=== PATIENT | female | born 1940 | race Caucasian/White ===

== ENCOUNTER → 2017-04-21 | Outpatient (CLI) | payer OTHER, MEDICARE ==
--- NOTE | 2017-04-21 15:23 | DIAGNOSTIC IMAGING REPORT ---
RIGHT HAND 3 VIEWS CLINICAL HISTORY: Right hand pain. FINDINGS: 3 views of the right hand are obtained. No prior studies are available for comparison at the time of dictation. The Skeletal structures are osteopenic. No fracture is seen. There is degenerative narrowing at the radiocarpal articulation and chondrocalcinosis of the triangular fibrocartilage. Mild osteoarthritic change is present the first carpometacarpal and metacarpophalangeal joints. There is after arthritic change involving the interphalangeal joints, distal greater than proximal. 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 Mild soft tissue swelling is seen in the fingers. IMPRESSION: 1. No acute bony abnormality is seen in the right hand. 2. Osteopenia and arthritic change as detailed above. Electronically signed by: Jairo Lozano M.D. 04/21/2017 3:21 PM Dictated Date/Time: 04/21/2017 3:20 PM
== END | disposition home or self-care (01) ==
LOC: C.RDSM 15:00
PROVIDERS: ATTEND Physician Assistant
DX: M79.641 Pain in right hand (principal); M85.841 Other specified disorders of bone density and structure, right hand

== ENCOUNTER → 2017-05-18 | Outpatient (CLI) | payer OTHER, MEDICARE | END | disposition home or self-care (01) | LOC: C.RDSM 13:21 | PROVIDERS: ATTEND Physical Medicine & Rehabilitation Sports Medicine | DX: M25.532 Pain in left wrist (principal) ==

== ENCOUNTER → 2018-02-03 | Day surgery (SDC) | payer OTHER, MEDICARE ==
[2018-01-20 11:48] VITALS: Ht 154.9 cm; Wt 54.5 kg
[~2018-02-03] VITALS: Ht 154.9 cm; Wt 54.5 kg
[~2018-02-03] MED LIST: ATROPINE SULFATE 0.1 MG/ML 5ML SYR IV PRN; BUPIVACAINE 0.5 % 5 MG/1 ML MPF 30ML VIAL ONE; CEFAZOLIN 1000MG IV PUSH 7.5 ML IV SCH; EpHEDrine SULFATE INJ 50 MG/ML AMP IV PRN; FENTANYL CITRATE INJ 50 MCG/1 ML 2 ML VIAL ONE; HYDR-5688 PO; HYDROCODONE/ACETAMIN 5/325MG TAB PO PRN; LACTATED RINGER'S 1000ML 1,000 ML IV SCH; LIDOCAINE HCL 2% 2 ML VIAL (20MG/ML) ONE; LIDOCAINE/EPINEPHRINE 1% 20 ML VIAL ONE; MIDAZOLAM HCL 1 MG/ML 2ML VIAL ONE; ONDANSETRON INJ 2 MG/ML 2 ML VIAL IV PRN; ONDANSETRON INJ 2 MG/ML 2 ML VIAL ONE; PRLSR20 PO; PROPOFOL IV EMULSION 10 MG/ML 20 ML VIAL ONE; SODIUM CHLORIDE 0.9% 1000ML 1,000 ML IV SCH; SPIR50TA2 PO; THEO300T14 PO; TRAZ100T29 PO; ZAFI1TAB10 PO
--- NOTE | 2018-02-03 06:47 | History & Physical Bridge Note ---
H&P Re-Evaluation Bridge Note: I have examined the patient, reviewed the History & Physical and in the interval since the performance of the History & Physical I have noted the following changes of clinical significance: No changes noted
--- NOTE | 2018-02-03 08:02 | [facility] Post Operative Brief Note ---
Immediate Operative Summary Operative Date February 03, 2018. Pre-Operative Diagnosis Right middle finger trigger digit Left Carpal Tunnel Syndrome Post-Operative Diagnosis same as preop Procedure(s) Performed Left Carpal Tunnel Release, Right Middle Trigger Finger Release Surgeon Dr. Graham Nursing Technician Surgeon(s) Kitty Ignacio Estimated Blood Loss 5 Findings Consistent with Post-Op Diagnosis Specimens A: Etienne Fibroma, right hand Drains None Anesthesia Type MAC Complication(s) none Disposition Accompanied Pt To Recover: no Disposition: Recovery Room / PACU
[2018-02-03 08:13] VITALS: TEMP 36.8; O2SAT 95
--- NOTE | 2018-02-03 08:21 | [facility] Operative Report ---
Operative Report Operative Date February 03, 2018. Pre-Operative Diagnosis Right middle finger trigger digit Left Carpal Tunnel Syndrome Post-Operative Diagnosis same as preop Procedure(s) Performed Left Carpal Tunnel Release, Right Middle Trigger Finger Release Surgeon Dr. Graham Tarp Repairer Surgeon(s) Kitty Ignacio Estimated Blood Loss 5 Findings Thickening of A1 milad right middle finger without triggering. Thickened palmar fascia with nodularity right middle finger. Specimens A: Etienne Fibroma, right hand Anesthesia Local with IV sedation Complication(s) None Disposition Recovery Room / PACU Indications Patient's 77-year-old female with symptomatic right hand long finger trigger digit. Immediately adjacent to this is a pulmonary nodule likely a fibroma with some prominence of the longitudinal palmar fascia. She also has severe left carpal tunnel syndrome. These are refractory to nonsurgical methods of management. Description of Procedure Informed consent was obtained. The patient was identified as Cassidy Gavin. The patient identified the operative site as the left hand carpal tunnel and the right long finger which I marked with my initials. A preoperative surgical timeout was performed. A preop dose of IV antibiotics was given. The patient was positioned supine on the hospital stretcher with the left arm suspended on a hand table. A tourniquet was applied to the arm. The limb was prepped and draped in the usual sterile fashion. The examination under anesthesia was unremarkable. DVT prophylaxis was not indicated. The limb was exsanguinated with the Esmarch and the tourniquet was inflated to 225 mmHg. A midline longitudinal incision was made beginning at Tomas's cardinal line. The incision stopped just short of the distal transverse wrist crease and was later extended 1 cm obliquely to the wrist crease. Blunt dissection was performed down through the subcutaneous tissues and through the superficial palmar fascia. The transverse carpal ligament was identified and divided in line with the incision up into distal forearm fascia under direct visualization. A wide decompression was obtained. The contents of the carpal canal tendons median nerve and tenosynovium appeared to be normal. The wound was copiously irrigated with sterile saline and then closed with 4-0 nylon horizontal mattress stitches. A soft sterile dressing was applied. There appeared to be 2 layers of the transverse carpal ligament distally or some thickened palmar fascia. This was carefully dissected through and then deeper to this was the transverse carpal ligament. Prior to that the superficial palmar fascia had been divided.The tourniquet was let down after 15 of inflation. Both upper extremities have been prepped and draped at the same time. The right hand was worked on first. Thickening of the A1 milad was noted and just proximal superficial to that a 1 cm palmar nodule with some thickened longitudinal palmar fascia extending proximal to it. A zigzag incision was made. Prior to the start of the procedure both hands were injected with 1% lidocaine with epinephrine and 0.5% Marcaine for local block. IV sedation was given. Blunt dissection was performed in the midline on the right hand long finger. Care was taken to identify protect and preserve the neurovascular bundles which were at this level immediately adjacent to the flexor tendon and immediately below the patient's thin skin. Some Zulay synovitis was noted proximally and this was resected along with a portion of the palmar nodule which had he adhered down to the flexor tendon sheath. The longitudinal portion was also resected and released. I carefully dissected a portion of the nodule off of the skin preserving the dermis. The thickened A1 milad was identified and fully divided there was nodularity of the tendon but no triggering present before or after. The wound was copiously irrigated with sterile saline and closed with 4-0 nylon. A soft sterile dressing was applied and the tourniquet was let down after approximately 15 minutes of inflation. The patient was awakened from anesthesia without difficulty and taken to the recovery room in stable condition. There were no specimens or complications. Counts were correct at the end of the case. Blood loss was minimal. At the conclusion of the operation spoke to the patient's family and informed them of my findings. Detailed postoperative instructions were given. The patient will be rehabilitated according to the carpal tunnel and trigger digit protocol. I attest to the content of the Intraoperative Record and any orders documented therein. Any exceptions are noted below.
--- NOTE | 2018-02-03 08:27 | Discharge Instructions-SurgCtr ---
Discharge Instructions Date of Service February 03, 2018. Visit Reason for Visit: Left Carpal Tunnel Syndrome, Right Middle Trigger Discharge Discharge Diagnosis / Problem: Left carpal tunnel syndrome, right middle trigger digit Discharge Goals Goal(s): Decrease discomfort, Improve function, Increase independence Activity Recommendations Activity Limitations: per Instructions/Follow-up section Anesthesia . Post Anesthesia Instructions: If you have had General Anesthesia or IV Sedation: * Do not drive today. * Resume driving when surgeon permits. * Do not make important decisions or sign legal documents today. * Call surgeon for: 1. Temperature elevations greater than 101 degrees F. 2. Uncontrollable pain. 3. Excessive bleeding. 4. Persistent nausea and vomiting. 5. Medication intolerance (nausea, vomiting or rash). * For nausea and vomiting use only clear liquids such as: tea, soda, bouillon until nausea subsides, then gradually increase diet as tolerated. * If you have any concerns or questions, call your surgeon's office. If physician is unavailable and it is an emergency, call 911 or go to the nearest emergency room. . Instructions / Follow-Up Instructions / Follow-Up The following are instructions to follow after minor hand surgery. ACTIVITY RECOMMENDATIONS: * Minimize activity until your first visit after surgery. * No excessive walking, jogging, sports or laboring. * Return to activity is individualized. Most patients are able to return to everyday activities within 2 weeks. * Return to sports or intensive labor usually occurs at 1-2 months. * DRIVING: Driving may be resumed when you feel you have adequate pain control and use of the hand. * BATHING: You may shower or sponge-bathe immediately after surgery. The dressing will need to be covered with a plastic bag or plastic wrap until the dressing is changed on the fourth or fifth day after surgery. Once the dressing has been changed on the fourth or fifth day after surgery, you may shower and get the incision wet. * Wash with regular soap and water. * Do not bathe (submerge the incision), soak, swim or use a hot tub until the incision is completely healed over with normal skin and the doctor has given the OK to proceed. * There is no need to apply any ointments, powders or salves to your incision. * Do not apply alcohol or hydrogen peroxide directly to the incision. Diluted peroxide (50:50 mixture with sterile saline) may be used to clean dried blood from around the incision area. WORK/SCHOOL: * You may return to sedentary work or school when you are feeling comfortable. This is usually 3-7 days after surgery. * Expect increased discomfort with increased activity. Continue to elevate and ice the hand as much as possible. DIET: * Resume previous diet. MEDICATIONS: * You will have a prescription for pain medication and an anti-inflammatory medication after surgery. Use the pain pills for severe pain and the anti-inflammatory for less severe pain. * Once the pain pills have run out, try to use the anti-inflammatory. If this is not effective then contact the office for assistance. * The pain medication may cause nausea, constipation and sleepiness. You should see how they affect you before driving or similar activity. * The anti-inflammatory may cause stomach upset and bleeding. If this occurs, let your doctor know immediately . * Some patients may need blood clot prevention. This can be done with either a pill or a simple shot. Your doctor will advise you on when to begin these medications and how to take them. * Do not take aspirin or other anti-inflammatory products (i.e. Advil or Aleve ) if taking blood thinner medication. * Take a stool softener like Colace or a stimulant like Senokot to prevent constipation. SPECIAL CARE INSTRUCTIONS: ICE: * Do not apply ice directly to the skin. * Use a thin dressing or stockinet between the skin and ice bag. The dressing in place after surgery will suffice. * Apply ice for 20-30 minutes and repeat every 2-4 hours. This is especially important for the first 3-7 days after surgery. * Once the pain improves, use ice as needed. ELEVATION: * Keep your hand elevated at or above the level of your heart as much as possible. * Expect some increased discomfort and swelling if you allow your hand to hang down for any length of time. DRESSING: * Your dressing will be changed 4-5 days after surgery by the physical therapist or physician's client services assistant. Leave your dressing intact until this time. * You may then change your dressing daily with clean dry gauze or Band-aids and a soft wrap or stockinet. * Always wash your hands prior to touching the incision area. * Once the stitches are removed, you may leave the wound open to air or cover with a thin bandage. * There is no need to apply any ointments, powders or salves to your incision. * Expect some bloody drainage for the first few days after surgery. * Leave the tape strips in place (if present) for 5-7 days. * The initial dressing after surgery may become soaked with blood or fluid which is normal. You may reinforce your dressing with clean, dry gauze as needed. BRACE: * Bracing is generally not needed after routine hand surgery. THERAPY: * Physical therapy may be prescribed after your surgery. * For carpal tunnel and trigger digit surgery you may begin moving your fingers and wrist immediately after surgery as tolerated. * Be careful to not overuse. * Once the sutures are removed, further range of motion exercises can be performed. * Hand incisions may be very sensitive for a few months after surgery so avoid excessive pressure on the incision. If necessary, use a padded weightlifters' glove. * You may massage the incision with skin cream to make it less sensitive and reduce scarring. * Hand strength usually returns with normal use. * If needed, squeezing a soft sponge or Play-dough may help. * Your doctor will recommend physical therapy if necessary. PROBLEMS/QUESTIONS: * If you have any problems such as severe pain, numbness, tingling or high fevers or if you have any questions, please contact the office at [phone]. * It is not uncommon to have some numbness and tingling after the surgery especially if you have had a nerve block done. This should gradually improve over the first 1- 2 days. If this persists longer or worsens then contact the office. FOLLOW UP VISIT: * If not already scheduled, please call the office at to schedule follow-up appointments for approximately 10 days, 6 weeks and 3 months after surgery. * You have follow up appointment scheduled with Dr. Graham on 02/15/18 at 10: 15 a.m. * you have a physical therapy appointment on 02/07/18 at 10:30 a.m. Diet Recommendations Home Diet: no limitations, resume previous diet Procedures Procedures Performed: Left Carpal Tunnel Release, Right Middle Trigger Finger Release Pending Studies Studies pending at discharge: no Medical Emergencies . Who to Call and When: Medical Emergencies: If at any time you feel your situation is an emergency, please call 911 immediately. . Non-Emergent Contact Non-Emergency issues call your: Surgeon Call Non-Emergent contact if: temperature is above 101, wound has increased drainage, wound has increased redness, wound has increased pain, you have any medication questions . . "Provider Documentation" section prepared by Frances Chavez. . [place] Drug Monitoring Program Search Results: patient reviewed within database, no issues identified
--- NOTE | 2018-02-03 08:44 | Anesthesia Progress Nt - [facility] ---
Anesthesia Post Op Note Date & Time February 03, 2018 at 08:44 Vital Signs Pain Intensity: 0 Vital Signs Past 12 Hours Date Time Temp Pulse Resp B/P (MAP) Pulse Ox O2 Delivery O2 Flow Rate FiO2 02/03/18 08:13 36.8 96 18 176/80 (112) 95 Room Air 02/03/18 06:33 36.6 87 18 131/74 (93) 98 Room Air Notes Mental Status: alert / awake / arousable, participated in evaluation Pt Amnestic to Procedure: Yes Nausea / Vomiting: adequately controlled Pain: adequately controlled Airway Patency, RR, SpO2: stable & adequate BP & HR: stable & adequate Hydration State: stable & adequate Anesthetic Complications: no major complications apparent
[2018-02-03 08:45] VITALS: BP 118/74; PULSE 88
== END | disposition home or self-care (01) ==
LOC: X.SURG 06:14
PROVIDERS: ATTEND Physical Medicine & Rehabilitation Sports Medicine
DX: M65.331 Trigger finger, right middle finger (principal); G56.02 Carpal tunnel syndrome, left upper limb; M72.0 Palmar fascial fibromatosis [Dupuytren]; I10 Essential (primary) hypertension; J45.909 Unspecified asthma, uncomplicated; M19.90 Unspecified osteoarthritis, unspecified site; K21.9 Gastro-esophageal reflux disease without esophagitis; Z79.899 Other long term (current) drug therapy; Z88.5 Allergy status to narcotic agent; Z90.710 Acquired absence of both cervix and uterus; Z86.711 Personal history of pulmonary embolism